=== PATIENT | male | born 1990 | race Caucasian/White ===

== ENCOUNTER 2018-07-07 14:50 | Emergency (ER) | payer MEDICAID ==
[~2018-07-07] VITALS: Ht 175.3 cm; Wt 72.7 kg
[2018-07-07] MEDS ORDERED: IBUP-2071 PO (14:53)
[2018-07-07 18:00] VITALS: BP 120/79
== END 2018-07-07 18:19 | disposition home or self-care (01) ==
LOC: EMS 14:52
DX: S93.401A Sprain of unspecified ligament of right ankle, initial encounter (principal); F17.210 Nicotine dependence, cigarettes, uncomplicated; Z79.899 Other long term (current) drug therapy; W19.XXXA Unspecified fall, initial encounter; Y93.66 Activity, soccer; Y92.89 Other specified places as the place of occurrence of the external cause; Y99.8 Other external cause status